=== PATIENT | male | born 1990 | race Caucasian/White ===

== ENCOUNTER 2020-09-22 14:02 | Outpatient (RCR) | payer BC, SELFPAY | END 2020-10-27 23:59 | LOC: IMMUN 14:02 | PROVIDERS: Visit Provider Family Medicine | DX: Z23 Encounter for immunization (principal) | CPT/HCPCS: 0001A; 0002A; 91300 ==

== ENCOUNTER 2022-07-22 07:30 | Emergency (ER) | payer BC, SELFPAY ==
[2022-07-22 07:30] VITALS: BP 161/115; PULSE 101; RESP 16; TEMP 36.6; O2SAT 98; BMI 32.5
--- NOTE | 2022-07-22 08:09 | CT_ITS ---
STUDY: CT ABDOMEN AND PELVIS WITHOUT CONTRAST REASON FOR EXAM: Male, 32 years old. Right flank pain. RADIATION DOSAGE (If Supplied By Facility): CTDIvol = ( 18.80 ) mGy, DLP = ( 986.27 ) mGycm TECHNIQUE: Transaxial images were obtained from the dome of the diaphragm to the symphysis pubis without oral contrast, and without intravenous contrast. Sagittal and coronal images were reconstructed. Individualized dose optimization techniques were used for this CT. COMPARISON: None. FINDINGS: The visualized lung bases are unremarkable. The visualized portions of the heart are within normal limits. Normal liver. Normal gallbladder and extrahepatic biliary system. Normal spleen. Normal pancreas. Normal bilateral adrenal glands. Mild degree of right perinephric and periureteric stranding. Mild degree of hydronephrosis in the proximal hydroureter due to a 2.8 mm calculus in the proximal right ureter. Tiny nonobstructive calculus in the lower pole calyx of the right kidney. There is also evidence of a 5.7 mm calculus at the base of the bladder on the right side just past the ureterovesical junction suggestive of a recently passed calculus. Tiny nonobstructive calculus in the lower pole calyx of the left kidney. There is a small hiatal hernia. Normal small intestine. Normal colon. The appendix is visualized and appears normal. Normal abdominal aorta. Normal inferior vena cava. Normal retroperitoneum. Normal urinary bladder. Small bilateral inguinal hernias containing fat. Normal osseous structures. CT/Abdomen/Pelvis without Cont IMPRESSION: Mild degree of right hydronephrosis and proximal right hydroureter due to a 2.8 mm calculus in the proximal right ureter. There is a 5.7 mm calculus at the base of the bladder on the right side just past the ureterovesical junction suggestive of a recently passed calculus. Nonobstructive small bilateral intrarenal calculi. Right perinephric and periureteric stranding. Electronically Signed: Kasi Watson MD at 8:53 EST ,
[2022-07-22 08:22] LABS: Mucous, Urine 0 SEEN /hpf (<or=2+)
[2022-07-22] MEDS: Ketorolac 15 MG/ML Vial IV (08:25)
[2022-07-22] MEDS: 0.9% Normal Saline 1,000 ML 250 ML IV (08:25)
[2022-07-22 08:26] LABS: Color, Urine Yellow (Yellow); Glucose, Dipstick Normal (Normal); Ketone-Dipstick 5 mg/dl (Negative); Leukocyte Esterase-Dipstick 25 /ul (Negative); Nitrite-Dipstick Negative (Negative); Occult Blood-Urine 250 /ul (Negative); Protein-Dipstick 30 mg/dl (Negative); Specific Gravity, Urine 1.025 (1.002-1.030); Urine Bilirubin Dipstick Negative (Negative); Urine Clarity Sl. Cloudy (Clear); Urine Urobilinogen Normal (Normal)
--- NOTE | 2022-07-22 08:36 | EX.ED.DYSGE1 ---
HPI History of Present Illness Chief Complaint: Abd Pain Informant: patient Narrative Narrative: Progressive right flank pain since midnight last night denies trauma. States this morning radiating to the right side of the abdomen. No nausea or vomiting or diarrhea. No fevers. States has urine urgency however no frequency or dysuria. Denies history of kidney stones. Denies family history of kidney stones. Denies any abdominal surgical history. Denies any history of irritable bowel disease. Denies any allergies. Prior similar symptoms: No PFSH PFSH Home Medications cefuroxime axetil 500 mg tablet 500 mg PO Q12H #14 tabs 07/22/22 [Rx Last Taken Unknown] hydrocodone-acetaminophen 5-325mg 5mg-325mg 1 tab PO Q6H PRN PRN Pain 3 days #12 TABLETS 07/22/22 [Rx Last Taken Unknown] ibuprofen 600 mg tablet 600 mg PO Q6H PRN PRN pain #20 TABLETS 07/22/22 [Rx Last Taken Unknown] ondansetron 4 mg disintegrating tablet 4 mg PO Q8H PRN PRN Nausea #10 tabs 07/22/22 [Rx Last Taken Unknown] tamsulosin 0.4 mg capsule 0.4 mg PO DAILY #7 CAPSULES 07/22/22 [Rx Last Taken Unknown] Allergy/AdvReac Type Severity Reaction Status Date / Time No Known Allergies Allergy Verified 07/22/22 07:30 Social History Smoking Status: Unknown if ever smoked ROS [facility] ED Constitutional Constitutional ED: Denies chills, fever(s) or sweats Eyes Eyes: Denies change in vision ENT ENT ED: Denies dysphagia or sore throat Cardiovascular Cardiovascular: Denies chest pain, leg edema, palpitations or racing heartbeat Respiratory/Chest Respiratory/Chest: Denies cough, dyspnea or dyspnea on exertion Gastrointestinal Gastrointestinal: Reports abdominal pain; Denies diarrhea, nausea or vomiting Genitourinary Genitourinary ED: Reports other Details: Urine urgency ; Denies dysuria, hematuria or urinary frequency Musculoskeletal Musculoskeletal: Reports back pain; Denies extremity pain or neck pain Integumentary Denies rash or wounds Neurologic Neurologic: Denies headache(s), paresthesias or weakness EXAM Physical Exam Const Vital Signs: 07/22/22 07:30 Temperature 97.8 F Temperature Source Temporal Pulse Rate 101 H Respiratory Rate 16 Blood Pressure 161/115 H Blood Pressure Mean 130 Pulse Ox 98 Oxygen Delivery Method Room Air Positive well nourished and well developed General Appearance ED: well developed and NAD HEENT Reports moist mucous membranes normocephalic and atraumatic Eyes PERRL, EOMs intact bilaterally and conjunctivae normal General Eye ED: Yes normal appearance of both eyes Neck no lymphadenopathy and supple General: Negative for tenderness Chest Wall Chest: Negative for tenderness Resp normal respiratory effort and normal air movement Effort and Inspection: symmetric chest movement; Negative for respiratory distress Cardio regular rate, regular rhythm and no murmurs Peripheral Pulses: pulses 2+ throughout GI normal to inspection, nondistended, normoactive bowel sounds and non-tender GI Narrative: Negative Klein's or McBurney's tenderness. Palpation: Negative for guarding or rebound tenderness present Back/Spine no CVA tenderness and no thoracic nor lumbar tenderness Back/Spine Narrative: No rash in the flank region. Extremity normal to inspection General Extremety ED: Negative for edema or tenderness General Extremity: Negative for edema Neuro oriented x3 and no sensory deficits noted Sensorium / Orientation: awake and alert Skin no rashes or lesions noted and no wounds MDM MDM MDM Narrative Medical decision making narrative: Interventions / MDM: Differential diagnosis: Kidney stones, musculoskeletal pain, nonspecific flank pain Diagnosis considered but do not suspect: Cholecystitis, appendicitis however clinically no rebound or guarding no direct pain in this area. My EKG interpretation: N/A Imaging independently reviewed and interpreted by myself: CT abdomen pelvis: 2.8 mm proximal ureteral stone additional 5.7 mm stone in the bladder. Stranding around the kidneys External documents reviewed: N/A Test considered but not ordered:N/A ED course: Patient nontoxic pain progressive since midnight. Renal stone protocol initiated given Toradol with mild improvement he did not anything more. CT scan notes proximal stone and the larger one in the bladder. On work-up,white count normal creatinine 1.31 urine had red blood, mild leukocytes, 1 bacteria urine culture sent. Denied dysuria however due to obstructive stone he started on antibiotics cefuroxime. Urine strainer sent home prescriptions for symptom control with Flomax started due to proximal stone. He is given follow-up with urology. Strict return precautions. All questions were answered. Re-evaluation: stable Disposition discussed with patient/family/significant other: Patient Case discussed with consulting clinician: N/A Lab Data Attestation: I reviewed the patient's lab results. Labs: Laboratory Results - last 24 hr 07/22/22 07/22/22 07/22/22 08:15 08:20 08:20 WBC 8.5 RBC 4.76 Hgb 14.9 Hct 44.3 MCV 93.1 MCH 31.3 MCHC 33.6 RDW Std Deviation 41.2 RDW Coeff of Nita 11.9 Plt Count 202 MPV 12.6 H Immature Gran % (Auto) 0.500 Neut % (Auto) 73.6 H Lymph % (Auto) 18.8 L [place] % (Auto) 5.9 Eos % (Auto) 0.8 Baso % (Auto) 0.4 Absolute Neuts (auto) 6.3 Absolute Lymphs (auto) 1.60 Nucleated RBC % 0 Sodium 138 Potassium 3.9 Chloride 103 Carbon Dioxide 24.0 Anion Gap 11 BUN 15 Creatinine 1.31 H Estim Creat Clear Calc 89.68 Est GFR (MDRD) Af Amer 82 Est GFR (MDRD) Non-Af 68 BUN/Creatinine Ratio 11.5 Glucose 127 H Calcium 8.8 Urine Color Yellow Urine Clarity Sl. Cloudy Urine pH 5.0 Ur Specific [place] 1.025 Urine Protein 30 H Urine Glucose (UA) Normal Urine Ketones 5 H Urine Occult Blood 250 H Urine Nitrite Negative Urine Bilirubin Negative Urine Urobilinogen Normal Ur Leukocyte Esterase 25 H Urine RBC 25-50 SEEN Urine WBC 0-5 SEEN Ur Squamous Epith Cells 0-5 SEEN Urine Bacteria 1+ Urine Mucus 0 SEEN Radiography Diagnostic Testing: Clinical Impression(s) from Imaging Studies Abdomen/Pelvis CT 07/22/22 08:09 IMPRESSION: Mild degree of right hydronephrosis and proximal right hydroureter due to a 2.8 mm calculus in the proximal right ureter. There is a 5.7 mm calculus at the base of the bladder on the right side just past the ureterovesical junction suggestive of a recently passed calculus. Nonobstructive small bilateral intrarenal calculi. Right perinephric and periureteric stranding. Electronically Signed: Kasi Watson MD at 8:53 EST , Discharge Plan Triage Chief Complaint: Abd Pain ED Provider: Chirag Mason Dx/Rx/DC Orders Clinical Impression: Kidney stone on right side, Acute UTI Instructions: ED Kidney Stone w/ Colic Prescriptions: New ibuprofen 600 mg tablet 600 mg PO Q6H PRN PRN (Reason: pain) Qty: 20 0RF hydrocodone-acetaminophen [hydrocodone-acetaminophen] 5-325 mg tablet 1 tab PO Q6H PRN PRN (Reason: Pain) 3 Days Qty: 12 0RF tamsulosin [tamsulosin] 0.4 mg capsule 0.4 mg PO DAILY Qty: 7 0RF ondansetron [ondansetron] 4 mg tablet,disintegrating 4 mg PO Q8H PRN PRN (Reason: Nausea) Qty: 10 0RF cefuroxime axetil 500 mg tablet 500 mg PO Q12H Qty: 14 0RF Primary Care Provider: Care Physician,No Primary Referrals: Colton Hoyt MD [Med Staff - Active Staff] - 3-5 Days Care Physician,No Primary [Primary Care Provider] - Activity Restrictions/Additional Instructions: You have a 2.8 mm proximal ureteral stone. You have a current 5.7 mm stone in your bladder which will pass. Urine notes slight infection. Take antibiotic as prescribed. Strain your urine. Take medications as prescribed. Follow-up with urology. Return if any worsening symptoms. Disposition Disposition: Home, Self Care Discharge Date/Time: 07/22/22 10:17
[2022-07-22 08:38] LABS: Absolute Neutrophil Count 6.3 X10^3/uL (2.0-7.7); Basophil# 0.03 X10^3/uL; Basophil% 0.4 % (0-1); Eosinophil# 0.07 X10^3/uL; Eosinophils% 0.8 % (0-5); Hematocrit 44.3 % (40-54); Hemoglobin 14.9 g/dL (13.0-16.5); Lymphocyte % 18.8 % (19-41); Mean Corp Hgb Conc 33.6 g/dL (32-36); Mean Corpuscular Hgb 31.3 pg (27.0-32.0); Mean Corpuscular Volume 93.1 fL (80-94); Mean Platelet Vol. 12.6 fl (6.2-12.0); Monocyte% 5.9 % (0-10); NRBC Flagged by Analyzer 0 % (0-5); Neutrophil # 6.26 X10^3/uL (2.7-7.7); Neutrophil % 73.6 % (47-70); Platelet Count 202 K/mm3 (150-450); RBC Distribution Width CV 11.9 % (11.6-14.6); RBC Distribution Width SD 41.2 fl (35.1-43.9); Red Blood Count 4.76 M/mm3 (4.6-6.2); White Blood Count 8.5 K/mm3 (4.4-11.0)
[2022-07-22 08:40] LABS: Red Blood Cells-Urine 25-50 SEEN /hpf (0-5)
[2022-07-22 08:41] LABS: Bacteria 1+ /hpf (None Seen); Squamous Epithelial Cells - UA 0-5 SEEN /hpf (0-5); White Blood Cells 0-5 SEEN /hpf (0-5)
[2022-07-22 08:41] LABS: Anion Gap 11 (5-15); BUN 15 mg/dL (7-18); BUN/Creat Ratio 11.5 RATIO (10-20); Calcium,Total 8.8 mg/dL (8.5-10.1); Chloride 103 mmol/L (98-107); Creatinine, Serum 1.31 mg/dL (0.70-1.30); EST Glomerular Filtration Rate 68 mL/min (>60); Est Glom Filt Rate - Afr Amer 82 mL/min (>60); Estimated Creatinine Clearance 89.68 ml/min; Glucose 127 mg/dL (74-106); Potassium 3.9 mmol/L (3.5-5.1); Sodium Level 138 mmol/L (136-145)
[2022-07-22] MEDS: Tamsulosin HCl 0.4 MG Capsule PO (10:09)
== END 2022-07-22 10:17 | disposition home or self-care (01) ==
PROVIDERS: Emergency Provider Emergency Medicine; Visit Provider Emergency Medicine
DX: N20.0 Calculus of kidney (principal); N39.0 Urinary tract infection, site not specified
CPT/HCPCS: 74176; 80048; 81001; 85025; 87086; 96374; 99283; J7030

== ENCOUNTER → 2022-08-29 | Outpatient (CLI) | payer BC, SELFPAY ==
[2022-09-03 15:33] LABS: Source Not Provided
== END | disposition home or self-care (01) ==
LOC: LABSPEC 16:36
PROVIDERS: Referring Provider Urology; Visit Provider Urology
DX: N20.1 Calculus of ureter (principal)
CPT/HCPCS: 82360